=== PATIENT | male | born 1960 | race Caucasian/White ===

== ENCOUNTER 2025-05-29 14:15 | Emergency (ER) | payer OTHER ==
[~2025-05-29] VITALS: Ht 167.6 cm; Wt 70.3 kg
[2025-05-29 15:11] VITALS: BP 137/89
[2025-05-29 18:11] LABS: CREATININE 0.7 mg/dL (0.6-1.3); SODIUM SERUM 140 mmol/L (136-145); UREA NITROGEN, BLOOD 16 mg/dL (7-18)
[2025-05-29 18:17] LABS: ASPARTATE AMINOTRANSFERASE 22 U/L (15-37); TOTAL PROTEIN, SERUM 7.1 g/dL (6.4-8.2)
[2025-05-29] MEDS: BISMUTH SUBSALICYLATE 262 MG/15 ML UDC PO ONE (20:15)
[2025-05-29 21:12] VITALS: BP 137/89; O2SAT 96
[2025-05-29 22:39] LABS: *OCCULT BLOOD STOOL NEGATIVE (NEGATIVE)
== END 2025-05-29 20:45 | disposition left against medical advice (07) ==
LOC: ER 14:36
DX: R10.13 Epigastric pain (principal); I11.9 Hypertensive heart disease without heart failure; E78.5 Hyperlipidemia, unspecified; K74.60 Unspecified cirrhosis of liver; Z85.118 Personal history of other malignant neoplasm of bronchus and lung; Z88.0 Allergy status to penicillin; Z91.041 Radiographic dye allergy status
CPT/HCPCS: 36415; 71045; 83690; 84484; 85730; A4606; A4663

== ENCOUNTER 2025-05-31 15:26 | Emergency (ER) | payer OTHER ==
[~2025-05-31] VITALS: Ht 172.7 cm; Wt 28.1 kg
[2025-05-31 15:32] VITALS: BP 113/53
[2025-05-31] MEDS ORDERED: PANTOPRAZOLE SODIUM 40 MG VIAL ONE (16:21)
[2025-05-31] MEDS ORDERED: diphenhydrAMINE 50 MG/1 ML VIAL ONE (16:21)
[2025-05-31] MEDS: PANTOPRAZOLE SODIUM 40 MG VIAL IV ONE (16:35)
[2025-05-31] MEDS: IV NORMAL SALINE 1000 ML BAG IV ONE (16:35)
[2025-05-31] MEDS: diphenhydrAMINE 50 MG/1 ML VIAL IV ONE (16:36)
[2025-05-31] MEDS ORDERED: diphenhydrAMINE 25 MG CAP PO ONE (16:42)
[2025-05-31] MEDS ORDERED: FAMOTIDINE 20 MG TABLET ONE (16:42)
[2025-05-31] MEDS: diphenhydrAMINE 25 MG CAP PO ONE (16:44)
[2025-05-31] MEDS: FAMOTIDINE 20 MG TABLET PO ONE (16:44)
[2025-05-31 16:46] LABS: PLATELET COUNT (AUTO) 281 K/uL (152-348); RED BLOOD CELL COUNT(AUTO) 4.26 MIL/uL (4.06-5.63); RED CELL DISTRIBUTION WIDTH 12.5 % (12.1-16.2); WHITE BLOOD COUNT (AUTO) 6.1 K/uL (3.6-10.2)
[2025-05-31 16:55] LABS: CREATININE 1.0 mg/dL (0.6-1.3); SODIUM SERUM 141.0 mmol/L (136-145); UREA NITROGEN, BLOOD 21.0 mg/dL (7-18)
[2025-05-31 17:01] LABS: ASPARTATE AMINOTRANSFERASE 13.0 U/L (15-37); TOTAL PROTEIN, SERUM 6.6 g/dL (6.4-8.2)
[2025-05-31] MEDS ORDERED: TRAZ-182 PO (17:41)
[2025-05-31] MEDS ORDERED: FAMO-132 PO (17:41)
[2025-05-31] MEDS ORDERED: AZIT250T13 PO (17:41)
[2025-05-31] MEDS ORDERED: DIPH25CA83 PO (17:41)
[2025-05-31] MEDS ORDERED: PRED20TA PO (17:41)
[2025-05-31 18:14] VITALS: BP 113/53; TEMP 97; O2SAT 94
== END 2025-05-31 18:15 | disposition home or self-care (01) ==
LOC: ER 15:26
DX: L29.9 Pruritus, unspecified (principal); T36.0X5A Adverse effect of penicillins, initial encounter; E78.5 Hyperlipidemia, unspecified; F17.210 Nicotine dependence, cigarettes, uncomplicated; G47.00 Insomnia, unspecified; I11.9 Hypertensive heart disease without heart failure; Z87.19 Personal history of other diseases of the digestive system; Z88.0 Allergy status to penicillin; Z91.041 Radiographic dye allergy status; Y92.89 Other specified places as the place of occurrence of the external cause
CPT/HCPCS: 36415; 85025; 85610; 86850; 86900; 86901; A4606; A4663; J1200; J2470; J7040; J7512; Q0163

== ENCOUNTER 2025-06-02 12:00 | Emergency (ER) | payer OTHER ==
[~2025-06-02] VITALS: Ht 167.6 cm; Wt 77.1 kg
[~2025-06-02 12:00] MED LIST: AZIT250T13 PO; DIPH25CA83 PO; FAMO-132 PO; PRED20TA PO; TRAZ-182 PO
[2025-06-02] MEDS ORDERED: PRED50TA PO (13:09)
[2025-06-02] MEDS ORDERED: FAMO40TA7 PO (13:09)
[2025-06-02] MEDS ORDERED: NICO1PAT35 TP (13:09)
[2025-06-02] MEDS ORDERED: AZIT250T13 PO (13:09)
[2025-06-02] MEDS ORDERED: FAMOTIDINE. 20 MG/2 ML VIAL IV ONE (13:18)
[2025-06-02] MEDS ORDERED: DEXAMETHASONE SOD PHOSPHATE 4 MG INJ ONE (13:18)
[2025-06-02 13:20] VITALS: BP 148/71
[2025-06-02] MEDS: FAMOTIDINE. 20 MG/2 ML VIAL IV ONE (13:23)
[2025-06-02] MEDS: DEXAMETHASONE SOD PHOSPHATE 4 MG INJ IV ONE (13:23)
[2025-06-02 13:44] VITALS: BP 148/71; TEMP 97.8; O2SAT 99
== END 2025-06-02 13:44 | disposition home or self-care (01) ==
LOC: ER 12:00
DX: L50.9 Urticaria, unspecified (principal); E78.5 Hyperlipidemia, unspecified; I11.9 Hypertensive heart disease without heart failure; F17.210 Nicotine dependence, cigarettes, uncomplicated; Z79.52 Long term (current) use of systemic steroids; Z60.2 Problems related to living alone; Z88.0 Allergy status to penicillin; Z91.041 Radiographic dye allergy status
CPT/HCPCS: 99284; 96374; 96375; J1100; J1308; A4606; A4663

== ENCOUNTER 2025-06-08 12:25 | Emergency (ER) | payer OTHER ==
[~2025-06-08] VITALS: Ht 167.6 cm; Wt 77.1 kg
[~2025-06-08 12:25] MED LIST changes: +FAMO40TA7 PO; +NICO1PAT35 TP; +PRED50TA PO
[2025-06-08 15:51] LABS: PLATELET COUNT (AUTO) 325 K/uL (152-348); RED BLOOD CELL COUNT(AUTO) 4.49 MIL/uL (4.06-5.63); RED CELL DISTRIBUTION WIDTH 12.8 % (12.1-16.2); WHITE BLOOD COUNT (AUTO) 8.8 K/uL (3.6-10.2)
[2025-06-08 16:03] LABS: CREATININE 0.8 mg/dL (0.6-1.3); SODIUM SERUM 142.0 mmol/L (136-145); UREA NITROGEN, BLOOD 20.0 mg/dL (7-18)
[2025-06-08 16:09] LABS: ASPARTATE AMINOTRANSFERASE 10.0 U/L (15-37); TOTAL PROTEIN, SERUM 6.3 g/dL (6.4-8.2)
[2025-06-08] MEDS: HYDROXYZINE HCL 25 MG/ML VIAL IM ONE (16:29)
[2025-06-08] MEDS ORDERED: TETR-66 PO (16:40)
[2025-06-08] MEDS ORDERED: METR500T PO (16:40)
[2025-06-08] MEDS ORDERED: OMEP20TA20 PO (16:40)
[2025-06-08] MEDS ORDERED: HYDR-501 PO (16:40)
[2025-06-08] MEDS ORDERED: OXYC-128 PO (16:40)
[2025-06-08] MEDS ORDERED: BISM262T15 PO (16:40)
[2025-06-08] MEDS ORDERED: NICO1PAT35 TP (16:47)
[2025-06-08] MEDS ORDERED: VARE1TAB PO (16:47)
[2025-06-08 17:00] VITALS: BP 140/67
[2025-06-08 17:10] VITALS: BP 136/70; O2SAT 99
== END 2025-06-08 17:11 | disposition home or self-care (01) ==
LOC: ER 12:25
DX: K29.70 Gastritis, unspecified, without bleeding (principal); L29.9 Pruritus, unspecified; I51.9 Heart disease, unspecified; E78.5 Hyperlipidemia, unspecified; F17.210 Nicotine dependence, cigarettes, uncomplicated; Z79.52 Long term (current) use of systemic steroids; Z87.11 Personal history of peptic ulcer disease; Z88.0 Allergy status to penicillin; Z91.041 Radiographic dye allergy status; Z79.899 Other long term (current) drug therapy
CPT/HCPCS: 36415; 85025; A4606; A4663

== ENCOUNTER 2025-06-29 08:50 | Emergency (ER) | payer OTHER ==
[~2025-06-29] VITALS: Ht 172.7 cm; Wt 83.9 kg
[~2025-06-29 08:50] MED LIST changes: +BISM262T15 PO; +HYDR-501 PO; +METR500T PO; +OMEP20TA20 PO; +OXYC-128 PO; +TETR-66 PO; +VARE1TAB PO
[2025-06-29 08:53] VITALS: BP 159/64
[2025-06-29 09:48] LABS: PLATELET COUNT (AUTO) 267 K/uL (152-348); RED BLOOD CELL COUNT(AUTO) 4.42 MIL/uL (4.06-5.63); RED CELL DISTRIBUTION WIDTH 12.5 % (12.1-16.2); WHITE BLOOD COUNT (AUTO) 4.7 K/uL (3.6-10.2)
[2025-06-29 10:00] LABS: CREATININE 0.7 mg/dL (0.6-1.3); SODIUM SERUM 141.0 mmol/L (136-145); UREA NITROGEN, BLOOD 17.0 mg/dL (7-18)
[2025-06-29 10:12] LABS: ASPARTATE AMINOTRANSFERASE 7.0 U/L (15-37); TOTAL PROTEIN, SERUM 6.8 g/dL (6.4-8.2)
[2025-06-29] MEDS ORDERED: CLAR-45 PO (10:35)
[2025-06-29] MEDS ORDERED: GABA300C PO (10:35)
[2025-06-29 10:41] VITALS: BP 140/59; O2SAT 98
== END 2025-06-29 10:41 | disposition home or self-care (01) ==
LOC: ER 08:50
DX: K29.70 Gastritis, unspecified, without bleeding (principal); R10.13 Epigastric pain; L29.9 Pruritus, unspecified; I51.9 Heart disease, unspecified; E78.5 Hyperlipidemia, unspecified; Z79.52 Long term (current) use of systemic steroids; Z79.899 Other long term (current) drug therapy; Z87.11 Personal history of peptic ulcer disease; Z88.0 Allergy status to penicillin; Z91.041 Radiographic dye allergy status; Z60.2 Problems related to living alone; Z72.0 Tobacco use
CPT/HCPCS: 36415; 85025; A4606; A4663